=== PATIENT | female | born 1935 | race Caucasian/White ===

== ENCOUNTER → 2016-11-12 | Day surgery (SDC) | payer OTHER ==
[~2016-11-12] MED LIST: ATROPINE SULFATE 1 MG/10 ML SYR ONE; ETOMIDATE 20 MG/10 ML VIAL IVP ONE; ETOMIDATE 40 MG/20 ML INJ IV ONE; MIDAZOLAM 2 MG/2 ML VIAL IVP ONE; MIDAZOLAM 2 MG/2 ML VIAL ONE; NS 500 ML IV ONE; PROPOFOL 200 MG/20 ML VIAL IVP ONE; fentaNYL 100 MCG/2 ML INJ IVP ONE; fentaNYL 100 MCG/2 ML INJ ONE
--- NOTE | 2016-11-12 07:10 | CPEKG ---
Heart Rate: 89 RR Interval: 674 QRSD Interval: 102 QT Interval: 360 QTC Interval: 439 QRS Maxwell: 21 T Wave Maxwell: 29 EKG Severity - ABNORMAL ECG - EKG Impression: Atrial fibrillation. EKG Impression: Q waves inferiorly, possible old inferior MT. EKG Impression: non-specific ST depression laterally. Electronically Signed By: Jack Bonilla 12-Nov-2016 17:05:05
[2016-11-12 07:36] LABS: APTT 37.4 SEC (23.0-38.0); INR 2.96 (0.83-1.16); PROTIME(PATIENT) 31.2 SEC (12.0-15.0)
[2016-11-12 07:49] LABS: ANION GAP 11 mEq/L (8-16); CALCIUM 9.1 mg/dL (8.5-10.4); CARBON DIOXIDE 25 mEq/l (22-31); CHLORIDE 107 mEq/L (97-110); CREATININE 1.1 mg/dL (0.6-1.0); GLOMERULAR FILTRATION RATE 47; GLUCOSE 88 mg/dL (70-100); MAGNESIUM 2.3 mg/dL (1.6-2.3); POTASSIUM 4.2 mEq/L (3.5-5.2); SODIUM 143 mEq/L (134-144)
--- NOTE | 2016-11-12 10:21 | PDTEE1 ---
CHARLIE Cardioversion Procedure Procedure: Electrical Cardioversion, Transesophageal Echo Indications: Atrial Fibrillation Consent: Signed and in Chart Anticoagulation: Warfarin Procedural Details: The pads were placed in anterior-posterior position and the CHARLIE probe was advanced with standard images obtained. There was no evidence of left atrial or left atrial appendage thrombus. Synchronized cardioversion attempt #1: other (250J) Synchronized cardioversion attempt #2: 360J Results: Normal sinus rhythm Conclusions: Successful Cardioversion Conclusion Comment: Successful elective DC cardioversion without immediate complication
--- NOTE | 2016-11-16 09:12 | ECHO ---
[id number] + + [address] : : [place] [address] : : [phone] + + Transesophageal Echocardiographic Report + + :Name: LUCYMARIANO Prosper Study Date: 11/12/2016 08:29 AM : : Hospital Admission Number: [id number] : :: 1935 Gender: Female : :Age: 81 yrs Race: WH : :Reason For Study: Eval LV Fx : :History: Pre Cardioversion : + + Left Ventricle Left ventricular systolic function is low normal. Ejection Fraction = 50%. The rhythm is atrial fibrillation. Atria The interatrial septum is intact with no evidence for an atrial septal defect. Injection of contrast documented no interatrial shunt. No left atrial mass or thrombus visualized. No thrombus is detected in the left atrial appendage. Mitral Valve The mitral valve is normal in structure and function. There is trace mitral regurgitation. Tricuspid Valve The tricuspid valve is normal in structure and function. Aortic Valve The aortic valve is normal in structure and function. The aortic valve is trileaflet. There is no aortic stenosis. There is no aortic insufficiency. Conclusion A 2D transesophageal echocardiogram with color flow Doppler was performed. Left ventricular systolic function is low normal. Ejection Fraction = 50%. The rhythm is atrial fibrillation. The interatrial septum is intact with no evidence for an atrial septal defect. Injection of contrast documented no interatrial shunt. No left atrial mass or thrombus visualized. No thrombus is detected in the left atrial appendage. The mitral valve is normal in structure and function. There is trace mitral regurgitation. The aortic valve is normal in structure and function. The aortic valve is trileaflet. Proceeded with successful elective DC cardioversion. 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 Final Reading Physician: Marguerite Wang signed on 11/16/2016 09:11 AM Ordering Physician: Rj Sandhu Performed By: Rj Sandhu MD
--- NOTE | 2016-11-17 13:23 | CPEKG ---
Heart Rate: 89 RR Interval: 674 P-R Interval: 253 QRSD Interval: 96 QT Interval: 364 QTC Interval: 443 P Glidden: -73 QRS Glidden: 26 T Wave Glidden: -47 EKG Severity - ABNORMAL ECG - EKG Impression: SINUS OR ECTOPIC ATRIAL RHYTHM EKG Impression: FIRST DEGREE AV BLOCK EKG Impression: BORDERLINE T ABNORMALITIES, INFERIOR LEADS Electronically Signed By: Nick Jay 17-Nov-2016 13:44:11
== END | disposition home or self-care (01) ==
LOC: FCATH 06:41
PROVIDERS: ATTEND Internal Medicine Cardiovascular Disease
PROC: 5A2204Z Restoration of Cardiac Rhythm, Single (ICD-10-PCS; principal; 2016-11-12)
PROC: B245ZZ4 Ultrasonography of Left Heart, Transesophageal (ICD-10-PCS; 2016-11-12)
DX: I48.0 Paroxysmal atrial fibrillation (principal); R53.83 Other fatigue; R06.02 Shortness of breath; R60.9 Edema, unspecified; I10 Essential (primary) hypertension; E03.9 Hypothyroidism, unspecified; M32.9 Systemic lupus erythematosus, unspecified; Z86.73 Personal history of transient ischemic attack (TIA), and cerebral infarction without residual deficits; Z87.891 Personal history of nicotine dependence; Z80.3 Family history of malignant neoplasm of breast; Z82.49 Family history of ischemic heart disease and other diseases of the circulatory system; Z79.01 Long term (current) use of anticoagulants
CPT/HCPCS: J0461; J2250; J3010

== ENCOUNTER → 2016-12-24 | Outpatient (CLI) | payer OTHER | LOC: BHFA 13:00 | PROVIDERS: ATTEND Internal Medicine Cardiovascular Disease | DX: I48.91 Unspecified atrial fibrillation (principal) ==

== ENCOUNTER → 2017-03-05 | Outpatient (CLI) | payer OTHER | LOC: BMCIMAGING 14:32 | PROVIDERS: ATTEND Internal Medicine | DX: R91.8 Other nonspecific abnormal finding of lung field (principal) ==

== ENCOUNTER → 2017-04-23 | Outpatient (CLI) | payer OTHER | LOC: CIMAGING 12:17 | PROVIDERS: ATTEND Internal Medicine | DX: Z12.31 Encounter for screening mammogram for malignant neoplasm of breast (principal); Z80.3 Family history of malignant neoplasm of breast | CPT/HCPCS: G0202 ==

== ENCOUNTER → 2017-05-18 | Outpatient (CLI) | payer OTHER | LOC: CIMAGING 12:41 | PROVIDERS: ATTEND Internal Medicine | DX: Z03.89 Encounter for observation for other suspected diseases and conditions ruled out (principal) | CPT/HCPCS: G0206 ==

== ENCOUNTER → 2018-04-25 | Outpatient (CLI) | payer OTHER | LOC: CIMAGING 11:54 | PROVIDERS: ATTEND Internal Medicine | DX: Z13.21 Encounter for screening for nutritional disorder (principal) ==